=== PATIENT | female | born 1985 | race Caucasian/White ===

== ENCOUNTER 2018-04-07 05:15 | Emergency (ER) | payer OTHER ==
[~2018-04-07] VITALS: Ht 154.9 cm; Wt 45.4 kg
[~2018-04-07 05:15] MED LIST: AMOXICILLIN 50500 M1 PO; BACTRIM DS TAB1 EACH PO; ERY-TAB500 MG; METOCLOPRAMIDE10 MG PO; NOHOMEMEDICATIONS; NORCO 5-325 TA1 EACH PO; PHENERGAN 25 MG25 M1 PO; PRENATAL; PROMETHEGAN25 MG RC; ZOFRAN ODT4 MG SUBLING; ZOFRAN PUMP; ZOFRAN4 MG PO; ZOFRAN8 MG PO; ZPAK PO
[2018-04-07] MEDS ORDERED: PROMETHAZINE/C118 ML PO (05:36)
[2018-04-07] MEDS ORDERED: NASONEX17 GM NASAL (05:36)
[2018-04-07] MEDS ORDERED: PROAIR HFA8.5 GM INH (05:36)
[2018-04-07 05:45] VITALS: BP 112/47
== END 2018-04-07 05:49 | disposition home or self-care (01) ==
LOC: M.ERS 05:15
DX: J06.9 Acute upper respiratory infection, unspecified (principal); F31.9 Bipolar disorder, unspecified; Z88.8 Allergy status to other drugs, medicaments and biological substances

== ENCOUNTER 2019-03-15 14:05 | Emergency (ER) | payer OTHER ==
[~2019-03-15] VITALS: Ht 154.9 cm; Wt 49.9 kg
[~2019-03-15 14:05] MED LIST changes: +NASONEX17 GM NASAL; +PROAIR HFA8.5 GM INH; +PROMETHAZINE/C118 ML PO
[2019-03-15] MEDS ORDERED: EFFEXOR 5050 MG/1 T1 PO (14:19)
[2019-03-15] MEDS ORDERED: CLONAZEPAM 0.50.5 M1 PO (14:20)
[2019-03-15] MEDS ORDERED: AMITRIPTYLINE H10 M3 PO (14:20)
[2019-03-15] MEDS ORDERED: XANAX 0.5 MG0.5 MG PO (14:20)
[2019-03-15] MEDS ORDERED: ACETAMINOPHEN-1 EAC1 PO (15:42)
[2019-03-15] MEDS ORDERED: ZOFRAN ODT4 MG PO (15:43)
[2019-03-15 16:01] VITALS: BP 122/70
== END 2019-03-15 16:01 | disposition home or self-care (01) ==
LOC: M.ERS 14:05
DX: S06.0X0A Concussion without loss of consciousness, initial encounter (principal); S16.1XXA Strain of muscle, fascia and tendon at neck level, initial encounter; M41.9 Scoliosis, unspecified; F31.9 Bipolar disorder, unspecified; Z88.8 Allergy status to other drugs, medicaments and biological substances; Y08.89XA Assault by other specified means, initial encounter; Y93.89 Activity, other specified; Y92.89 Other specified places as the place of occurrence of the external cause; Y99.8 Other external cause status

== ENCOUNTER 2019-05-20 11:01 | Emergency (ER) | payer OTHER ==
[~2019-05-20] VITALS: Ht 154.9 cm; Wt 45.4 kg
[~2019-05-20 11:01] MED LIST changes: +ACETAMINOPHEN-1 EAC1 PO; +AMITRIPTYLINE H10 M3 PO; +CLONAZEPAM 0.50.5 M1 PO; +EFFEXOR 5050 MG/1 T1 PO; +XANAX 0.5 MG0.5 MG PO; +ZOFRAN ODT4 MG PO
[2019-05-20] MEDS ORDERED: KEFLEX500 M1 PO (11:21)
[2019-05-20 11:28] VITALS: BP 128/83
== END 2019-05-20 11:29 | disposition home or self-care (01) ==
LOC: M.ERS 11:01
DX: L72.3 Sebaceous cyst (principal); F31.9 Bipolar disorder, unspecified; M41.9 Scoliosis, unspecified; E06.3 Autoimmune thyroiditis; Z88.8 Allergy status to other drugs, medicaments and biological substances; Z88.1 Allergy status to other antibiotic agents